=== PATIENT | female | born 1955 | race Caucasian/White ===

== ENCOUNTER → 2017-12-19 11:21 | Outpatient (CLI) | payer BC, SELFPAY ==
[2017-12-19 14:34] LABS: CRP < 2.90 mg/L (0.0-3.0)
[2017-12-20 20:07] LABS: Endomysial Antibody IgA Negative (Negative)
[2017-12-21 14:08] LABS: Immunoglobulin A 147 mg/dL (87-352); t-Transglutaminase IgA <2 U/mL (0-3)
== END ==
PROVIDERS: Family Provider Family Medicine; PCP Family Medicine; Visit Provider Internal Medicine Gastroenterology
DX: R19.7 Diarrhea, unspecified (principal)
CPT/HCPCS: 36415; 82784; 83516; 86140; 86255

== ENCOUNTER → 2017-12-24 15:57 | Outpatient (CLI) | payer BC, SELFPAY ==
--- NOTE | 2017-12-24 | IMM_PTH ---
PATIENT: ELIANA HENDERSON LOC: [facility] U#:[id number] AGE/SX: 69/F ROOM: RE12/24/[address]: Dr. Stevie Escudero MD : 1955 BED: DIS: SPEC #: [id number] RECD: 12/26/17 14:20 STATUS: HONEY REStefania #: [id number] YOSEF: 12/24/17 00:[address]: Stevie Escudero DEPT: IMMUNOHISTOCHEMISTRY RECD BY: Aretha Renee ENTERED: 12/26/17 14:20 SP TYPE: IMMUNO OTHR DR: Dr. Braulio Xavier DO Tissues: Stomach, NOS Procedures: H Pylori (initial) PHYSICIAN & INSTITUTION [place] [address] SPECIMEN INFORMATION: Tissue Source: Gastric and antrum body Clinical Info: GERD, abdominal pain Specimen Number: [id number] CPT code: 93833 METHODOLOGY: Deparaffinized sections of prefer/formalin-fixed tissue or PAP/DQ stained slides are incubated with monoclonal/polyclonal antibodies/oligonucleotide probes. Localization is made via biotin free immunoperoxidase method. Appropriate controls are performed and reacted as expected. Results on target cell population are indicated in the following table: RESULTS: ANTIBODY / CLONE RESULT H Pylori (polyclonal) negative These tests were developed and their performance characteristics determined by [facility]. They may not have been cleared or approved by the [place]. Food and Drug Administration. The FDA has determined that such clearance or approval is not necessary. INTERPRETATION: Gastric and antrum body, biopsy: Negative for Helicobacter pylori organisms. [email or web address] 12/27/17
--- NOTE | 2017-12-24 11:47 | EGD_PTH ---
PATIENT: ELIANA HENDERSON LOC: [facility] U#:[id number] AGE/SX: 69/F ROOM: RE12/24/[address]: Dr. Stevie Escudero MD : 1955 BED: DIS: SPEC #: [id number] RECD: 12/24/17 15:19 STATUS: HONEY KATIE #: [id number] YOSEF: 12/24/17 11:[address]: Stevie Escudero DEPT: SURGICAL PATHOLOGY RECD BY: Robert Coello ENTERED: 12/25/17 12:10 SP TYPE: EGD BIOPSY OTHR DR: Dr. Braulio Xavier, [facility] Tissues: Gastric mucous membrane Procedures: Surgery Specimen Level IV HEADER OPERATION: EGD with biopsy PRE-OP DIAGNOSIS: GERD, abdominal pain TISSUE SUBMITTED: Gastric and antrum body biopsies, rule out gastritis MICROSCOPIC DIAGNOSIS Gastric mucosa, biopsy: Mild chronic gastritis. [email or web address] 12/26/17 COMMENT The results of immunohistochemistry for Helicobacter pylori will be reported separately ([id number]). MICROSCOPIC DESCRIPTION Slides are reviewed. GROSS DESCRIPTION Received in fixative is one container labeled with the patient's name and designated gastric and antrum biopsy. The specimen consists of multiple irregular fragments of light garcia soft tissue that in aggregate measure 0.5 x 0.3 x 0.1 cm. The specimen is totally submitted in one cassette. / AM:[email or web address] 12/25/17 TC:3 CPT: 61035
== END ==
PROVIDERS: Family Provider Family Medicine; PCP Family Medicine; Visit Provider Internal Medicine Gastroenterology
DX: K21.9 Gastro-esophageal reflux disease without esophagitis (principal); R10.9 Unspecified abdominal pain
CPT/HCPCS: 88305; 88342